=== PATIENT | female | born 1975 | race Caucasian/White ===

== ENCOUNTER → 2017-04-02 | Outpatient (CLI) | payer BC | LOC: LAB 10:45 | DX: I10 Essential (primary) hypertension (principal); E78.2 Mixed hyperlipidemia ==

== ENCOUNTER → 2017-04-07 | Outpatient (CLI) | payer BC | LOC: LAB 08:20 | DX: R73.01 Impaired fasting glucose (principal) ==

== ENCOUNTER → 2017-07-08 | Outpatient (CLI) | payer BC | LOC: RAD 16:12 | DX: M25.471 Effusion, right ankle (principal); M06.871 Other specified rheumatoid arthritis, right ankle and foot; M25.571 Pain in right ankle and joints of right foot ==

== ENCOUNTER → 2017-09-08 | Outpatient (CLI) | payer BC | LOC: RAD 11:35 | DX: M19.032 Primary osteoarthritis, left wrist (principal) ==

== ENCOUNTER → 2017-10-02 | Outpatient (CLI) | payer BC | LOC: LAB 11:07 | DX: R73.01 Impaired fasting glucose (principal) ==

== ENCOUNTER → 2018-04-05 | Outpatient (CLI) | payer BC ==
[2018-04-05 11:45] LABS: EOS # 0.3 (0.04-0.40); EOS % 3.6 % (1.0-5.0); HEMATOCRIT 42.8 % (37.0-47.0); HEMOGLOBIN 14.2 g/dL (12.5-16.0); MEAN CELL VOLUME 85 fl (78-100); MEAN CORPUSCULAR HEMOGLOBIN 28 pg (27-31); MEAN CORPUSCULAR HGB CONC 33 g/dL (33-37); MEAN PLATELET VOLUME 9.7 fl (7.4-10.4); MONO # 0.4 (0.20-0.80); NEU # 5.1 (1.40-6.50); PLATELET COUNT 312 K/mm3 (130-400); RED BLOOD COUNT 5.06 M/mm3 (4.10-5.30); RED CELL DISTRIBUTION WIDTH 14.9 % (11.5-14.5); WHITE BLOOD COUNT 7.9 K/mm3 (4.8-10.8)
[2018-04-05 11:53] LABS: ALBUMIN 3.7 g/dL (3.5-5.0); BUN/CREATININE RATIO 16.5 (6.0-26.0); CALCIUM 9.1 mg/dL (8.4-10.2); TOTAL BILIRUBIN 0.3 mg/dL (0.2-1.3); TOTAL PROTEIN 7.8 g/dL (6.3-8.2)
== END ==
LOC: LAB 10:45
PROVIDERS: Nurse Practitioner Family
DX: I10 Essential (primary) hypertension (principal); E11.9 Type 2 diabetes mellitus without complications; E78.2 Mixed hyperlipidemia

== ENCOUNTER → 2019-04-06 | Outpatient (CLI) | payer BC ==
[2019-04-06 07:17] LABS: EOS # 0.4 (0.04-0.40); EOS % 6.4 % (1.0-5.0); HEMATOCRIT 44.7 % (37.0-47.0); HEMOGLOBIN 14.8 g/dL (12.5-16.0); LYMPH# 2.1 (1.50-4.00); MEAN CELL VOLUME 88 fl (78-100); MEAN CORPUSCULAR HEMOGLOBIN 29 pg (27-31); MEAN CORPUSCULAR HGB CONC 33 g/dL (33-37); MEAN PLATELET VOLUME 10.3 fl (7.4-10.4); MONO # 0.4 (0.20-0.80); NEU # 3.7 (1.40-6.50); PLATELET COUNT 272 K/mm3 (130-400); RED BLOOD COUNT 5.06 M/mm3 (4.10-5.30); RED CELL DISTRIBUTION WIDTH 13.4 % (11.5-14.5); WHITE BLOOD COUNT 6.7 K/mm3 (4.8-10.8)
[2019-04-06 08:11] LABS: ALBUMIN 3.6 g/dL (3.5-5.0); CALCIUM 9.7 mg/dL (8.3-10.5); POTASSIUM 3.7 mmol/L (3.5-5.1); TOTAL BILIRUBIN 0.3 mg/dL (0.2-1.2); TOTAL PROTEIN 7.4 g/dL (6.4-8.3)
== END ==
LOC: LAB 06:57
PROVIDERS: Physician Assistant
DX: E78.00 Pure hypercholesterolemia, unspecified (principal); I10 Essential (primary) hypertension; F41.9 Anxiety disorder, unspecified; E11.9 Type 2 diabetes mellitus without complications; M06.4 Inflammatory polyarthropathy; L21.9 Seborrheic dermatitis, unspecified; M19.90 Unspecified osteoarthritis, unspecified site; F32.0 Major depressive disorder, single episode, mild

== ENCOUNTER → 2019-06-29 | Outpatient (CLI) | payer BC | LOC: LAB 09:22 | DX: E11.9 Type 2 diabetes mellitus without complications (principal); E66.9 Obesity, unspecified ==

== ENCOUNTER → 2019-10-05 | Outpatient (CLI) | payer BC | LOC: LAB 10:01 | DX: E11.9 Type 2 diabetes mellitus without complications (principal); M06.4 Inflammatory polyarthropathy; L21.9 Seborrheic dermatitis, unspecified ==

== ENCOUNTER 2019-12-15 09:17 | Emergency (ER) | payer BC ==
[~2019-12-15] VITALS: Ht 180.3 cm; Wt 132.3 kg
[2019-12-15] MEDS ORDERED: MEDROXYPROG150 MG/M1 (09:33)
[2019-12-15] MEDS ORDERED: LISINOPRIL AND1 TA1 PO (09:33)
[2019-12-15] MEDS ORDERED: PRAVASTATIN SOD40 MG PO (09:33)
[2019-12-15] MEDS ORDERED: SERTRALINE50 MG PO (09:33)
[2019-12-15] MEDS ORDERED: METFORMIN HYD1000 MG PO (09:33)
[2019-12-15] MEDS ORDERED: HUMIRA40 MG/0.5 SQ (09:34)
[2019-12-15] MEDS ORDERED: CITRACAL + D E1 EACH PO (09:34)
[2019-12-15 09:53] LABS: HEMATOCRIT 42.8 % (37.0-47.0); HEMOGLOBIN 14.2 g/dL (12.5-16.0); MEAN CELL VOLUME 87 fl (78-100); MEAN CORPUSCULAR HEMOGLOBIN 29 pg (27-31); MEAN CORPUSCULAR HGB CONC 33 g/dL (33-37); MEAN PLATELET VOLUME 10.1 fl (7.4-10.4); PLATELET COUNT 301 K/mm3 (130-400); RED BLOOD COUNT 4.95 M/mm3 (4.10-5.30); RED CELL DISTRIBUTION WIDTH 13.9 % (11.5-14.5); WHITE BLOOD COUNT 12.4 K/mm3 (4.8-10.8)
[2019-12-15 10:05] LABS: POTASSIUM 3.8 mmol/L (3.5-5.1)
[2019-12-15 10:07] LABS: TOTAL PROTEIN 7.5 g/dL (6.4-8.3)
[2019-12-15 10:09] LABS: TOTAL BILIRUBIN 0.3 mg/dL (0.2-1.2)
[2019-12-15 10:29] LABS: LYMPHOCYTE 12 % (20-51); MONOCYTE 2 % (3-10); NEUTROPHILS 84 % (42-75)
[2019-12-15 10:56] LABS: PH-URINE 5.5 (5.0 - 8.0); URINE APPEARANCE HAZY; URINE BILIRUBIN NEGATIVE (NEGATIVE); URINE COLOR DK YELLOW; URINE GLUCOSE NEGATIVE (NEGATIVE); URINE KETONE 1+ (NEGATIVE); URINE PROTEIN(semi-quant) TRACE mg/dL (NEGATIVE); URINE UROBILINOGEN NORMAL (NORMAL)
[2019-12-15 10:57] LABS: URINE BLOOD TRACE (NEGATIVE); URINE LEUKOCYTE ESTERASE TRACE (NEGATIVE); URINE MUCUS PRESENT (NOT PRESENT); URINE NITRATE NEGATIVE (NEGATIVE)
[2019-12-15] MEDS ORDERED: NORCO 325 MG-51 TA1 PO (11:33)
[2019-12-15] MEDS ORDERED: CIPRO500 M1 PO (11:33)
[2019-12-15] MEDS ORDERED: ZOFRAN4 M2 PO (11:33)
[2019-12-15 11:48] VITALS: BP 152/90
== END 2019-12-15 11:42 | disposition home or self-care (01) ==
LOC: ED 09:17
PROVIDERS: Nurse Practitioner Primary Care
DX: N20.0 Calculus of kidney (principal); I10 Essential (primary) hypertension; E78.5 Hyperlipidemia, unspecified; F32.9 Major depressive disorder, single episode, unspecified; Z90.49 Acquired absence of other specified parts of digestive tract; Z88.0 Allergy status to penicillin
CPT/HCPCS: J2405; J7030; Q9967

== ENCOUNTER → 2019-12-15 | Outpatient (CLI) | payer BC ==
[~2019-12-15] MED LIST: CIPRO500 M1 PO; CITRACAL + D E1 EACH PO; HUMIRA40 MG/0.5 SQ; LISINOPRIL AND1 TA1 PO; MEDROXYPROG150 MG/M1; METFORMIN HYD1000 MG PO; NORCO 325 MG-51 TA1 PO; PRAVASTATIN SOD40 MG PO; SERTRALINE50 MG PO; ZOFRAN4 M2 PO
== END ==
LOC: LAB 09:15
DX: R10.9 Unspecified abdominal pain (principal); R35.0 Frequency of micturition

== ENCOUNTER → 2020-01-05 | Outpatient (CLI) | payer BC ==
[2019-12-15 11:48] VITALS: BP 152/90
[2020-01-05 08:31] LABS: EOS # 0.2 (0.04-0.40); HEMATOCRIT 43.5 % (37.0-47.0); HEMOGLOBIN 14.1 g/dL (12.5-16.0); LYMPH# 2.9 (1.50-4.00); MEAN CELL VOLUME 87 fl (78-100); MEAN CORPUSCULAR HEMOGLOBIN 28 pg (27-31); MEAN CORPUSCULAR HGB CONC 32 g/dL (33-37); MEAN PLATELET VOLUME 9.6 fl (7.4-10.4); MONO # 0.5 (0.20-0.80); NEU # 5.3 (1.40-6.50); PLATELET COUNT 331 K/mm3 (130-400); RED BLOOD COUNT 5.02 M/mm3 (4.10-5.30); RED CELL DISTRIBUTION WIDTH 14.1 % (11.5-14.5)
[2020-01-05 08:37] LABS: POTASSIUM 3.8 mmol/L (3.5-5.1)
[2020-01-05 08:38] LABS: ALBUMIN 3.6 g/dL (3.5-5.0)
[2020-01-05 08:39] LABS: CALCIUM 9.4 mg/dL (8.3-10.5)
[2020-01-05 08:40] LABS: TOTAL PROTEIN 7.1 g/dL (6.4-8.3)
[2020-01-05 08:42] LABS: TOTAL BILIRUBIN 0.4 mg/dL (0.2-1.2)
== END ==
LOC: LAB 08:18
PROVIDERS: Physician Assistant
DX: E11.9 Type 2 diabetes mellitus without complications (principal); M06.4 Inflammatory polyarthropathy; L21.8 Other seborrheic dermatitis; E78.2 Mixed hyperlipidemia; I10 Essential (primary) hypertension; F41.9 Anxiety disorder, unspecified

== ENCOUNTER → 2020-01-11 | Outpatient (CLI) | payer BC ==
[2019-12-15 11:48] VITALS: BP 152/90
== END ==
LOC: RAD 09:28
DX: S99.921A Unspecified injury of right foot, initial encounter (principal); M77.31 Calcaneal spur, right foot

== ENCOUNTER → 2020-04-06 | Outpatient (CLI) | payer BC | LOC: LAB 08:24 | DX: E11.9 Type 2 diabetes mellitus without complications (principal) ==

== ENCOUNTER → 2020-07-06 | Outpatient (CLI) | payer BC | LOC: LAB 11:10 | DX: E11.9 Type 2 diabetes mellitus without complications (principal) ==

== ENCOUNTER → 2020-08-16 | Day surgery (SDC) | payer BC | LOC: MSO 07:18 | DX: K63.5 Polyp of colon (principal); R19.7 Diarrhea, unspecified; K62.89 Other specified diseases of anus and rectum; Z88.1 Allergy status to other antibiotic agents; Z79.84 Long term (current) use of oral hypoglycemic drugs; I10 Essential (primary) hypertension; F41.9 Anxiety disorder, unspecified; E78.00 Pure hypercholesterolemia, unspecified; E11.9 Type 2 diabetes mellitus without complications; M19.90 Unspecified osteoarthritis, unspecified site | CPT/HCPCS: 00811; J2704; J7030 ==

== ENCOUNTER → 2020-10-10 | Outpatient (CLI) | payer BC ==
[2020-10-10 10:07] LABS: BASO # 0.1 (0.02-0.10); EOS % 7.4 % (1.0-5.0); HEMATOCRIT 41.5 % (37.0-47.0); LYMPH# 2.3 (1.50-4.00); MEAN CELL VOLUME 87 fl (78-100); MEAN CORPUSCULAR HEMOGLOBIN 29 pg (27-31); MEAN CORPUSCULAR HGB CONC 34 g/dL (33-37); MEAN PLATELET VOLUME 10.1 fl (7.4-10.4); MONO # 0.5 (0.20-0.80); NEU # 5.7 (1.40-6.50); PLATELET COUNT 352 K/mm3 (130-400); RED CELL DISTRIBUTION WIDTH 13.6 % (11.5-14.5); WHITE BLOOD COUNT 9.2 K/mm3 (4.8-10.8)
[2020-10-10 10:41] LABS: ALBUMIN 3.9 g/dL (3.5-5.0); POTASSIUM 3.7 mmol/L (3.5-5.1)
[2020-10-10 10:43] LABS: CALCIUM 10.1 mg/dL (8.3-10.5)
[2020-10-10 10:44] LABS: TOTAL PROTEIN 7.3 g/dL (6.4-8.3)
[2020-10-10 10:46] LABS: TOTAL BILIRUBIN 0.3 mg/dL (0.2-1.2)
[2020-10-10 11:13] LABS: EOS # 0.7 (0.04-0.40)
[2020-10-10 21:42] LABS: HEPATITIS B CORE AB TOTAL Negative (()); HEPATITIS B SURFACE ANTIGEN Negative (Negative); HEPATITIS C VIRUS ANTIBODY Negative (Negative)
[2020-10-11 15:50] LABS: TB GOLD INTERPRETATION.TB GOLD Negative (Negative)
== END ==
LOC: LAB 09:45
PROVIDERS: Physician Assistant
DX: Z79.899 Other long term (current) drug therapy (principal)

== ENCOUNTER → 2021-01-15 | Outpatient (CLI) | payer BC ==
[2021-01-15 17:27] LABS: BASO # 0.1 (0.02-0.10); EOS # 0.6 (0.04-0.40); EOS % 6.1 % (1.0-5.0); HEMATOCRIT 42.6 % (37.0-47.0); HEMOGLOBIN 13.8 g/dL (12.5-16.0); LYMPH# 2.6 (1.50-4.00); MEAN CELL VOLUME 87 fl (78-100); MEAN CORPUSCULAR HEMOGLOBIN 28 pg (27-31); MEAN CORPUSCULAR HGB CONC 32 g/dL (33-37); MEAN PLATELET VOLUME 9.5 fl (7.4-10.4); MONO # 0.4 (0.20-0.80); PLATELET COUNT 372 K/mm3 (130-400); RED BLOOD COUNT 4.89 M/mm3 (4.10-5.30); RED CELL DISTRIBUTION WIDTH 13.6 % (11.5-14.5); WHITE BLOOD COUNT 9.8 K/mm3 (4.8-10.8)
[2021-01-15 17:34] LABS: ALBUMIN 3.9 g/dL (3.5-5.0); POTASSIUM 3.8 mmol/L (3.5-5.1)
[2021-01-15 17:37] LABS: TOTAL PROTEIN 7.5 g/dL (6.4-8.3)
[2021-01-15 17:39] LABS: TOTAL BILIRUBIN 0.3 mg/dL (0.2-1.2)
== END ==
LOC: LAB 17:16
PROVIDERS: Physician Assistant
DX: Z00.00 Encounter for general adult medical examination without abnormal findings (principal); Z13.29 Encounter for screening for other suspected endocrine disorder; E11.9 Type 2 diabetes mellitus without complications; E78.00 Pure hypercholesterolemia, unspecified

== ENCOUNTER → 2022-01-09 | Outpatient (CLI) | payer BC ==
[2022-01-09 09:19] LABS: BASO # 0.02 K/mm3 (0.02-0.10); EOS # 0.03 K/mm3 (0.04-0.40); EOS % 0.2 % (1.0-5.0); HEMOGLOBIN 14.3 g/dL (12.5-16.0); LYMPH# 2.13 K/mm3 (1.50-4.00); MEAN CELL VOLUME 86 fl (78-100); MEAN CORPUSCULAR HEMOGLOBIN 29 pg (27-31); MEAN CORPUSCULAR HGB CONC 33 g/dL (33-37); MEAN PLATELET VOLUME 9.5 fl (7.4-10.4); MONO # 0.52 K/mm3 (0.20-0.80); NEU # 11.77 K/mm3 (1.40-6.50); PLATELET COUNT 367 K/mm3 (130-400); RED BLOOD COUNT 5.01 M/mm3 (4.10-5.30); RED CELL DISTRIBUTION WIDTH 13.7 % (11.5-14.5); WHITE BLOOD COUNT 14.5 K/mm3 (4.8-10.8)
[2022-01-09 09:31] LABS: ALBUMIN 4.2 g/dL (3.5-5.0); POTASSIUM 4.2 mmol/L (3.5-5.1)
[2022-01-09 09:32] LABS: CALCIUM 10.6 mg/dL (8.3-10.5)
[2022-01-09 09:33] LABS: TOTAL PROTEIN 7.9 g/dL (6.4-8.3)
[2022-01-09 09:35] LABS: TOTAL BILIRUBIN 0.3 mg/dL (0.2-1.2)
== END ==
LOC: LAB 09:03
PROVIDERS: Physician Assistant
DX: Z13.29 Encounter for screening for other suspected endocrine disorder (principal); E11.9 Type 2 diabetes mellitus without complications; E78.2 Mixed hyperlipidemia; I10 Essential (primary) hypertension

== ENCOUNTER → 2022-07-15 | Outpatient (CLI) | payer BC ==
[2022-07-15 08:49] LABS: ALBUMIN 3.7 g/dL (3.5-5.0)
[2022-07-15 08:50] LABS: POTASSIUM 4.1 mmol/L (3.5-5.1)
[2022-07-15 08:51] LABS: CALCIUM 9.5 mg/dL (8.3-10.5)
[2022-07-15 08:52] LABS: TOTAL PROTEIN 7.2 g/dL (6.4-8.3)
[2022-07-15 08:54] LABS: TOTAL BILIRUBIN 0.3 mg/dL (0.2-1.2)
== END ==
LOC: LAB 08:30
PROVIDERS: Physician Assistant
DX: Z00.00 Encounter for general adult medical examination without abnormal findings (principal); Z13.29 Encounter for screening for other suspected endocrine disorder; M13.80 Other specified arthritis, unspecified site; E11.9 Type 2 diabetes mellitus without complications; L21.0 Seborrhea capitis; L40.9 Psoriasis, unspecified; I10 Essential (primary) hypertension; E78.00 Pure hypercholesterolemia, unspecified; K21.9 Gastro-esophageal reflux disease without esophagitis; E55.9 Vitamin D deficiency, unspecified; K62.89 Other specified diseases of anus and rectum; K90.9 Intestinal malabsorption, unspecified; F32.0 Major depressive disorder, single episode, mild; K52.9 Noninfective gastroenteritis and colitis, unspecified; R76.8 Other specified abnormal immunological findings in serum

== ENCOUNTER → 2024-08-02 | Outpatient (CLI) | payer BC ==
[2024-08-03 17:10] LABS: TB GOLD INTERPRETATION.TB GOLD Negative (Negative)
[2024-08-06 05:39] LABS: VITAMIN B1 187.9 nmol/L (())
== END ==
LOC: LAB 10:51
PROVIDERS: Physician Assistant
DX: E53.1 Pyridoxine deficiency (principal); E11.40 Type 2 diabetes mellitus with diabetic neuropathy, unspecified; Z79.899 Other long term (current) drug therapy

== ENCOUNTER → 2024-12-22 | Outpatient (CLI) | payer BC | LOC: LAB 09:28 | DX: E11.9 Type 2 diabetes mellitus without complications (principal) ==